=== PATIENT | female | born 1955 | race Caucasian/White ===

== ENCOUNTER 2019-11-18 08:57 | Emergency (ER) | payer BC ==
[~2019-11-18] VITALS: Ht 157.5 cm; Wt 40.8 kg
[2019-11-18] MEDS ORDERED: NEURONTIN100 MG PO (10:16)
[2019-11-18] MEDS ORDERED: DECADRON4 MG PO (10:16)
[2019-11-18 11:01] VITALS: BP 112/71
[2019-11-18] MEDS ORDERED: NORCO 5-325 TA1 EAC1 PO (11:01)
== END 2019-11-18 11:01 | disposition home or self-care (01) ==
LOC: ER 08:57
DX: S42.355A Nondisplaced comminuted fracture of shaft of humerus, left arm, initial encounter for closed fracture (principal); W10.8XXA Fall (on) (from) other stairs and steps, initial encounter; Y93.01 Activity, walking, marching and hiking; Y92.89 Other specified places as the place of occurrence of the external cause; Y99.8 Other external cause status